=== PATIENT | male | born 1995 | race Asian ===

== ENCOUNTER → 2018-10-19 | Outpatient (CLI) | payer OTHER ==
[~2018-10-19] MED LIST: RT-ALBUTEROL SULF 2.5 MG/3 ML PRE-MIX VIAL INH ONE; RT-ALBUTEROL SULF 2.5 MG/3 ML PRE-MIX VIAL ONE
== END ==
LOC: RT 09:38
PROVIDERS: ATTEND Nurse Practitioner Family
DX: Z87.09 Personal history of other diseases of the respiratory system (principal)
CPT/HCPCS: 94060; 94726; 94729

== ENCOUNTER → 2018-10-29 | Outpatient (CLI) | payer OTHER ==
[~2018-10-29] MED LIST changes: +METHACHOLINE CHLORIDE 100MG/VIAL IH ONE; +RT-SODIUM CHL INHALATION 3 ML VIAL ONE
== END ==
LOC: RT 10-26 09:48
PROVIDERS: ATTEND Family Medicine
DX: J98.4 Other disorders of lung (principal)
CPT/HCPCS: 94070; 95070

== ENCOUNTER → 2019-04-23 | Outpatient (CLI) | payer OTHER ==
[~2019-04-23] MED LIST changes: +CATHETER FLUSH 10 ML SYR IV PRN; +HOLD METFORMIN - RECEIVED CONTRAST 20 ML VIAL IV SCH; +IOHEXOL 350 MG/ML 100 ML (OMNIPAQUE 350) VIAL IV ONE; -METHACHOLINE CHLORIDE 100MG/VIAL IH ONE; +NS 100 ML (IVPB) BAG IV ONE; -RT-ALBUTEROL SULF 2.5 MG/3 ML PRE-MIX VIAL INH ONE; -RT-ALBUTEROL SULF 2.5 MG/3 ML PRE-MIX VIAL ONE; -RT-SODIUM CHL INHALATION 3 ML VIAL ONE
--- NOTE | 2019-04-23 14:32 | Diagnostic Imaging Report ---
CLINICAL INDICATION: Patient with blood in stool and elevated bilirubin. EXAM: The CT scan of the abdomen and pelvis was performed with 94 cc of Omnipaque 350 IV contrast. Coronal and sagittal reformatted images were created. Auto Exposure Controls were utilized during the CT exam to meet ALARA standards for radiation dose reduction. COMPARISON: None. FINDINGS: The liver, spleen, pancreas, and adrenal glands are unremarkable. The gallbladder is predominantly decompressed with no significant abnormalities visualized. There is no intrahepatic or extrahepatic ductal dilation. The portal venous phase shows partially excreted contrast involving both kidneys. There is no renal mass, renal stone, or hydronephrosis seen. The bladder is fluid-filled with no gross abnormality. There is no intestinal obstruction. The appendix is not visualized on this exam as there is closely adjacent intestine in the expected region. There is no intra-abdominal free air or fat stranding in the pericecal region. There is no intra-abdominal free air or free fluid. There is no lymphadenopathy. The visualized abdominal and pelvic soft tissue structures are unremarkable. The bones show no significant abnormality. The visualized lung bases are clear. IMPRESSION: 1. Of note, the appendix is not visualized on this exam due to closely adjacent small bowel. 2. There is no CT evidence of an acute abdominal or pelvic process. There is no intrahepatic or extra hepatic ductal dilation. There is no tyrell hepatis obstructing mass seen. 3. The remainder of this exam is unremarkable. Dictated by: Dictated on workstation # [id number]
== END ==
LOC: RAD 13:45
PROVIDERS: ATTEND Nurse Practitioner Family
DX: K92.1 Melena (principal); E80.7 Disorder of bilirubin metabolism, unspecified
CPT/HCPCS: 74177

== ENCOUNTER → 2019-04-23 | Outpatient (CLI) | payer OTHER ==
--- NOTE | 2019-04-23 09:07 | Diagnostic Imaging Report ---
INDICATION: Shortness of breath for several years. Increasing issues recently. Rectal bleeding.. TECHNIQUE: Two view chest 9:04 AM CORRELATION STUDY: 04/18/2014 FINDINGS: The heart size, mediastinal configuration and pulmonary vasculature are within normal limits. The lungs are clear with no consolidating infiltrate. There is no significant pleural effusion or pneumothorax. Visualized osseous structures are unremarkable. IMPRESSION: 1. Negative for acute abnormality of the chest. Dictated by: Dictated on workstation # [id number]
[2019-04-23 09:17] LABS: HEMOGLOBIN 16.4 G/DL (13.3-17.7); MEAN PLATELET VOLUME 10.2 FL (7.4-10.4); RED CELL DISTRIBUTION WIDTH 11.7 % (10.0-14.5); WHITE BLOOD COUNT 7.4 10^3/uL (4.3-11.0)
[2019-04-23 09:49] LABS: ALANINE AMINOTRANSFERASE 27 U/L (0-55); ALBUMIN 5.3 GM/DL (3.2-4.5); ALKALINE PHOSPHATASE 100 U/L (40-136); BILIRUBIN,TOTAL 2.4 MG/DL (0.1-1.0); BUN/CREATININE RATIO 10; CARBON DIOXIDE 24 MMOL/L (21-32); CHLORIDE 105 MMOL/L (98-107); CREATININE SERUM 0.96 MG/DL (0.60-1.30); GFR ESTIMATED > 60; GLUCOSE 96 MG/DL (70-105); SODIUM 142 MMOL/L (135-145); TOTAL PROTEIN 8.2 GM/DL (6.4-8.2)
[2019-04-24 09:50] LABS: ALBUMIN 5.4 GM/DL (3.2-4.5); BILIRUBIN,DIRECT 0.7 MG/DL (0.0-0.3); BILIRUBIN,INDIRECT 1.7 MG/DL; BILIRUBIN,TOTAL 2.4 MG/DL (0.1-1.0); TOTAL PROTEIN 8.1 GM/DL (6.4-8.2)
== END ==
LOC: RAD 08:46
PROVIDERS: ATTEND Nurse Practitioner Family
DX: K62.5 Hemorrhage of anus and rectum (principal); E80.6 Other disorders of bilirubin metabolism; R06.00 Dyspnea, unspecified
CPT/HCPCS: 36415; 71046; 80053; 80076; 84443; 85027; 85379

== ENCOUNTER 2019-04-29 09:15 | Outpatient (CLI) | payer OTHER ==
[~2019-04-29] VITALS: Ht 172 cm; Wt 71.8 kg
== END 2019-04-29 09:56 ==
LOC: PREOP 09:15
PROVIDERS: ATTEND Surgery
DX: Z01.818 Encounter for other preprocedural examination (principal)